=== PATIENT | male | born 1945 | race Caucasian/White ===

== ENCOUNTER 2023-04-04 06:21 | Inpatient (IN) | payer MEDICARE, BC ==
[2023-04-02 12:32] LABS: Urine WBC None Seen /hpf (0 - 3)
[2023-04-02 12:33] LABS: Basophils # (auto) 0.1 10 ^3/uL (0-0.2); Basophils % (auto) 1.4 % (0.0-2.0); Eosinophils # (auto) 0.1 10 ^3/uL (0-0.8); Eosinophils % (auto) 1.9 % (0.0-7.0); Hematocrit 42.9 % (41.0-53.0); Hemoglobin 14.2 g/dL (13.5-17.5); Lymphocytes % (auto) 17.5 % (10.0-50.0); Mean Corpuscular Hemoglobin 28.6 pg (28.0-32.0); Mean Corpuscular Hgb Conc. 33.2 g/dL (32.0-36.0); Mean Corpuscular Volume 86.2 fL (80.0-100.0); Monocytes # (auto) 0.7 10 ^3/uL (0-1.3); Monocytes % (auto) 11.8 % (0.0-12.0); Neutrophils # (auto) 3.8 10 ^3/uL (1.6-8.6); Neutrophils % (auto) 67.4 % (37.0-80.0); Nucleated Red Blood Cells % 0.1 %; Red Blood Cells 4.97 10^6/uL (4.5-5.90); Red Cell Distribution Width 14.7 % (11.8-14.3); White Blood Cell 5.6 10^3/uL (4.4-10.8)
[2023-04-02 12:48] LABS: Urine Bacteria NONE SEEN /hpf (None Seen); Urine Blood Negative /uL (Negative); Urine Specific Gravity 1.017 (1.001-1.035)
[2023-04-02 12:50] LABS: INR 1.05 (0.9-1.15); Partial Thromboplastin Time 29.9 sec (24.6-33.4)
[2023-04-02 13:11] LABS: Albumin 3.4 g/dL (3.4-5.0); Calcium 8.9 mg/dL (8.5-10.1); Potassium 4.8 mmol/L (3.5-5.1)
[2023-04-02 13:14] LABS: BUN/Creatinine Ratio 29.2 (10.0-20.0); Bilirubin, Total 0.3 mg/dL (0.2-1.0)
[~2023-04-04] VITALS: Ht 182.9 cm; Wt 81.6 kg
[2023-04-04] MEDS ORDERED: ceFAZolin 1GM/50ML 100 ML IV ONE (06:29)
[2023-04-04] MEDS ORDERED: ACETAMINOPHEN IV 100 ML IV ONE (06:44)
[2023-04-04] MEDS ORDERED: GABAPENTIN 400 MG CAP ONE (06:44)
[2023-04-04] MEDS ORDERED: LIDOCAINE 2% JELLY 11ml (GLYDO) ONE (06:44)
[2023-04-04] MEDS ORDERED: GABAPENTIN 300 MG CAP PO ONE (06:45)
[2023-04-04] MEDS ORDERED: LIDOCAINE 4MG/ML IV SOLN 500 ML IV SCH (06:45)
[2023-04-04] MEDS ORDERED: ACETAMINOPHEN 500 MG TAB PO ONE (06:45)
[2023-04-04] MEDS ORDERED: LIDOCAINE 1% INJ PF 5ML AMP ONE ×2 (06:53→06:55)
[2023-04-04] MEDS ORDERED: GABAPENTIN 400 MG CAP PO ONE (07:00)
[2023-04-04] MEDS ORDERED: SODIUM CHLORIDE LOCK 10 ML ONE ×3 (07:00→09:33)
[2023-04-04] MEDS: MAGNESIUM SULFATE 1GM/100ML 100 ML IV SCH ×3 (07:00→09:00)
[2023-04-04] MEDS ORDERED: fentaNYL CITRATE 100 MCG/2 ML VL ONE (07:00)
[2023-04-04] MEDS ORDERED: ACETAMINOPHEN IV 1000 MG/100ML (10MG/ML) IV ONE (07:00)
[2023-04-04] MEDS ORDERED: ROCURONIUM 10MG/ML 10ML VIAL IV ONE (07:00)
[2023-04-04] MEDS ORDERED: SUGAMMADEX 200mg/2ml Vial (100MG/ML) IV ONE (07:00)
[2023-04-04] MEDS ORDERED: GLYCOPYRROLATE 0.2 MG/ML 1ML VIAL ONE (07:00)
[2023-04-04] MEDS ORDERED: PROPOFOL 10 MG/ML 20 ML IV ONE ×2 (07:00→09:17)
[2023-04-04] MEDS ORDERED: ONDANSETRON HCL 4 MG/2 ML VIAL ONE (07:01)
[2023-04-04] MEDS ORDERED: DexAMETHasone SOD PHOS 10MG/1ML VIAL INJ ONE (07:01)
[2023-04-04] MEDS ORDERED: LIDOCAINE 2% (LOCAL ANESTH.) PF 5ml SDV ONE (07:01)
[2023-04-04] MEDS ORDERED: KETAMINE HCL 10 ML ONE (07:06)
[2023-04-04] MEDS ORDERED: SUCCINYLCHOLINE CHLORIDE 20 MG/ML 10ML VIAL IV ONE (07:06)
[2023-04-04] MEDS ORDERED: TRANEXAMIC ACID 20 ML ONE (07:36)
[2023-04-04 11:21] VITALS: PULSE 106; RESP 16; O2SAT 97
[2023-04-04 11:25] VITALS: PULSE 75; RESP 17; O2SAT 97
[2023-04-04] MEDS ORDERED: HYDROmorphone HCL 2 MG/ML VL/or syr IV PRN (11:30)
[2023-04-04] MEDS: ceFAZolin 1GM/50ML 50 ML IV SCH ×2 (11:30→21:21)
[2023-04-04] MEDS ORDERED: FLUMAZENIL 0.1 MG/ML INJ 10ML MDV IV PRN (11:30)
[2023-04-04] MEDS ORDERED: LABETALOL HCL 5 MG/ML 4ML SYRINGE IV PRN (11:30)
[2023-04-04] MEDS ORDERED: ePHEDrine SULFATE 50 MG/ML AMP IV PRN (11:30)
[2023-04-04] MEDS ORDERED: ACETAMINOPHEN 325 MG TAB PO PRN (11:30)
[2023-04-04] MEDS ORDERED: MORPHINE SULFATE INJ 2 MG/ml SYRG IV PRN ×2 (11:30)
[2023-04-04] MEDS ORDERED: fentaNYL CITRATE 100 MCG/2 ML VL IV PRN (11:30)
[2023-04-04] MEDS ORDERED: NALOXONE HCL 0.4 MG/ML VIAL IV PRN (11:30)
[2023-04-04] MEDS ORDERED: NITROGLYCERIN 0.4 MG SL TAB SL PRN (11:30)
[2023-04-04] MEDS ORDERED: ONDANSETRON HCL 4 MG/2 ML VIAL IV PRN ×2 (11:30)
[2023-04-04] MEDS ORDERED: oxyCODONE HCL 5MG TAB PO PRN (11:30)
[2023-04-04] MEDS ORDERED: hydrALAZINE HCL 20 MG/ML VL IV PRN ×2 (11:30→19:15)
[2023-04-04 11:35] VITALS: PULSE 74; RESP 18; O2SAT 97
[2023-04-04] MEDS ORDERED: LABETALOL HCL 5 MG/ML 4ML SYRINGE IV ONE ×2 (12:24→12:40)
[2023-04-04] MEDS ORDERED: CYCLOBENZAPRINE HCL 10 MG TAB PO ONE (12:32)
[2023-04-04] MEDS ORDERED: oxyCODONE HCL 5MG TAB PO ONE (12:33)
[2023-04-04] MEDS: D5W/SOD CHLO 0.9% 1,000 ML IV SCH ×2 (14:57→21:30)
[2023-04-04] MEDS: CYCLOBENZAPRINE HCL 10 MG TAB PO SCH ×2 (14:57→21:21)
[2023-04-04 16:54] VITALS: BP 152/73; PULSE 71; RESP 19; TEMP 97.8; O2SAT 92
[2023-04-04] MEDS: HYDROcodone-ACET 10/325MG TAB PO PRN (18:05)
[2023-04-04] MEDS ORDERED: MAGNESIUM SULFATE 1GM/100ML 100 ML IV ONE (19:15)
[2023-04-04] MEDS ORDERED: SOD CHL 0.45% 1,000 ML IV ONE (19:15)
[2023-04-04 20:00] VITALS: BP 150/86; PULSE 60; PULSE 62; RESP 18; RESP 19; TEMP 97.5; O2SAT 98
[2023-04-04 20:21] LABS: Cholesterol 127 mg/dL (< 200); HDL Cholesterol 39 mg/dL (40-59); LDL Cholesterol 80 mg/dL (< 100); Triglycerides 38 mg/dL (< 150)
[2023-04-04] MEDS: DOCUSATE SOD 100 MG CAP PO SCH (21:21)
[2023-04-04 22:00] VITALS: BP 159/88; PULSE 60; RESP 19; TEMP 97.5; O2SAT 94
[2023-04-05] MEDS: HYDROcodone-ACET 10/325MG TAB PO PRN ×3 (00:15→13:57)
[2023-04-05 05:00] VITALS: BP 131/74; PULSE 60; RESP 19; TEMP 97.3; O2SAT 96
[2023-04-05 05:51] LABS: Basophils # (auto) 0 10 ^3/uL (0-0.2); Basophils % (auto) 0.2 % (0.0-2.0); Eosinophils # (auto) 0 10 ^3/uL (0-0.8); Hematocrit 39.7 % (41.0-53.0); Hemoglobin 13.2 g/dL (13.5-17.5); Lymphocytes # (auto) 0.7 10 ^3/uL (0.4-5.4); Lymphocytes % (auto) 7.7 % (10.0-50.0); Mean Corpuscular Hemoglobin 28.8 pg (28.0-32.0); Mean Corpuscular Hgb Conc. 33.2 g/dL (32.0-36.0); Mean Corpuscular Volume 86.7 fL (80.0-100.0); Monocytes # (auto) 0.8 10 ^3/uL (0-1.3); Monocytes % (auto) 8.6 % (0.0-12.0); Neutrophils # (auto) 7.6 10 ^3/uL (1.6-8.6); Neutrophils % (auto) 83.5 % (37.0-80.0); Red Blood Cells 4.58 10^6/uL (4.5-5.90); Red Cell Distribution Width 14.6 % (11.8-14.3); White Blood Cell 9.1 10^3/uL (4.4-10.8)
[2023-04-05] MEDS: CYCLOBENZAPRINE HCL 10 MG TAB PO SCH ×2 (05:56→13:38)
[2023-04-05 06:07] LABS: BUN/Creatinine Ratio 21.3 (10.0-20.0); Calcium 8.5 mg/dL (8.5-10.1); Potassium 4.7 mmol/L (3.5-5.1)
[2023-04-05] MEDS ORDERED: DexAMETHasone SOD PHOS 10MG/1ML VIAL INJ IV ONE ×2 (07:45→08:00)
[2023-04-05 08:00] VITALS: PULSE 59
[2023-04-05 08:07] VITALS: RESP 18; O2SAT 98
[2023-04-05] MEDS: D5W/SOD CHLO 0.9% 1,000 ML IV SCH (08:13)
[2023-04-05 09:00] VITALS: BP 139/75; PULSE 58; RESP 24; TEMP 98; O2SAT 96
[2023-04-05] MEDS: DOCUSATE SOD 100 MG CAP PO SCH (09:49)
[2023-04-05 15:58] VITALS: TEMP 36.7
== END 2023-04-05 16:51 | disposition home or self-care (01) | DRG 473 ==
LOC: SUR 06:21 → TELE 11:23 → TELE-WESTW 14:11
PROVIDERS: ADMIT Orthopaedic Surgery; ATTEND Internal Medicine
PROC: 0RG20A0 Fusion of 2 or more Cervical Vertebral Joints with Interbody Fusion Device, Anterior Approach, Anterior Column, Open Approach (ICD-10-PCS; principal; 2023-04-05)
PROC: 01N10ZZ Release Cervical Nerve, Open Approach (ICD-10-PCS; 2023-04-05)
PROC: 00NW0ZZ Release Cervical Spinal Cord, Open Approach (ICD-10-PCS; 2023-04-05)
PROC: 0RB30ZZ Excision of Cervical Vertebral Disc, Open Approach (ICD-10-PCS; 2023-04-05)
PROC: 4A11X4G Monitoring of Peripheral Nervous Electrical Activity, Intraoperative, External Approach (ICD-10-PCS; 2023-04-05)
DX: M48.02 Spinal stenosis, cervical region (principal); M54.12 Radiculopathy, cervical region; M06.9 Rheumatoid arthritis, unspecified; I10 Essential (primary) hypertension; H91.90 Unspecified hearing loss, unspecified ear; Z96.651 Presence of right artificial knee joint; Z97.4 Presence of external hearing-aid; I49.8 Other specified cardiac arrhythmias
CPT/HCPCS: 36415; 72040; 76000; 80048; 80053; 80061; 81001; 84443; 84484; 85025; 85610; 85730; 86850; 86900; 86901; 93306; 97163; G0378; J0131; J0330; J0690; J1100; J2001; J2405; J2704; J3490; J7042